=== PATIENT | male | born 1945 | race Caucasian/White ===

== ENCOUNTER → 2017-07-21 | Day surgery (SDC) | payer MEDICARE, OTHER ==
[~2017-07-21] MED LIST: BUPIVACAINE HCL 0.5 % INJ/PF 30 ML SDV ONE; METHYLPREDNISOLONE ACETATE INJ 40 MG/1 ML ML ONE
--- NOTE | 2017-07-21 15:04 | RADIOLOGY REPORT (SQ) ---
EXAM DESCRIPTION: INJECT/ASPIR WRIST/ELB/ANKLE; FLUORO/NEEDLE PLACEMENT COMPLETED DATE/TIME: 07/21/2017 2:43 pm REASON FOR STUDY: M19.071 PRIMARY OSTEOARTHRITIS, RIGHT ANKLE AND FOOT M19.071 PRIMARY OSTEOARTHRIT IS, RIGHT ANKLE AND FOOT COMPARISON: None. FLUOROSCOPY TIME: 1 minutes 2 seconds 2 images saved to PACS. LIMITATIONS: None. PROCEDURE: SITE OF INJECTION: 2nd and 3rd tarsometatarsal joints. LOCALIZING CONTRAST TYPE AND DOSE: 0.5 cc Isovue-300 MEDICATION TYPE AND DOSE: 20 mg Depo-Medrol. 0.5 cc 0.1% Sensorcaine. Using local anesthesia and sterile technique with fluoroscopic guidance, the needle was advanced into the joint. Iodinated contrast was injected to verify intraarticular placement. This was followed by therapeutic injection of the indicated medications. The needle was removed. There were no immediat e complications. Preprocedure pain level: 8/10. Postprocedure pain level: 0/10. IMPRESSION: THERAPEUTIC INJECTION OF THE RIGHT 2ND AND 3RD TARSOMETATARSAL JOINTS ABOVE. COMMENT: Patient medication list reviewed: Yes- Quality ID# [id number]:Eligible professional attests to doc umenting in the medical record they obtained, updated, or reviewed the patient's current medications. . Quality ID [id number]: Final reports for procedures using fluoroscopy that document radiation exposure edwardo cailin, or exposure time and number of fluorographic images (if radiation exposure indices are not avail able) TECHNICAL DOCUMENTATION: JOB ID: [id number] [employer]- All Rights Reserved
== END ==
LOC: RAD 13:26
PROVIDERS: ATTEND Orthopaedic Surgery
PROC: 3E0U33Z Introduction of Anti-inflammatory into Joints, Percutaneous Approach (ICD-10-PCS; principal; 2017-07-21)
DX: M19.071 Primary osteoarthritis, right ankle and foot (principal)
CPT/HCPCS: 20605; 77002; J1020; J3490

== ENCOUNTER 2018-06-26 10:34 | Emergency (ER) | payer MEDICARE, OTHER ==
[2018-06-26] MEDS ORDERED: ASPIRIN 81 MG TABLET, CHEWABLE PO ONE (11:59)
--- NOTE | 2018-06-26 12:04 | ER Document Report ---
ED General - General Chief Complaint: Leg Swelling Stated Complaint: LEG PAIN Time Seen by Provider: 06/26/18 11:36 Mode of Arrival: Ambulatory Information source: Patient, Relative, [facility] Records Notes: 72-year-old male with coronary artery disease, hypertension, degenerative joint disease presents with complaint of lower extremity swelling that started 1 week prior to arrival. Patient denies history of heart failure. States that he recently saw his coffee roaster who cleared him for a shoulder surgery last week. Patient denies chest pain. He states that this morning he had generalized abdominal pain and nausea that he described as aching and relieved with sitting up. Patient does admit to shortness of breath with minimal activity and lying flat. He denies fever, chills, nausea, vomiting, dysuria, hematuria. Patient's last bowel movement was this morning. Denies any black or bloody stools. TRAVEL OUTSIDE OF THE [place] IN LAST 30 DAYS: No - HPI Onset: Other Onset/Duration: Gradual, Persistent Quality of pain: Achy Severity: Mild Associated symptoms: Leg swelling, Shortness of breath. denies: Chest pain, Diarrhea, Headache, Nausea, Vomiting Exacerbated by: Supine Relieved by: Sitting Similar symptoms previously: No Recently seen / treated by doctor: Yes - Related Data Allergies/Adverse Reactions: No Known Allergies Allergy (Verified 10/05/15 21:24) Past Medical History - General Information source: Patient, [facility] Records - Social History Smoking Status: Current Some Day Smoker Cigarette use (# per day): Yes - 2 a month Chew tobacco use (# tins/day): No Smoking Education Provided: Yes - Smoking cessation counseling was provided for 4 minutes at the bedside Frequency of alcohol use: None Drug Abuse: None Lives with: Spouse/Significant other Family History: Reviewed & Not Pertinent Patient has suicidal ideation: No Patient has homicidal ideation: No - Past Medical History Cardiac Medical History: Reports: Hx Coronary Artery Disease, Hx Heart Attack, Hx Hypertension Pulmonary Medical History: Denies: Hx Asthma, Hx Bronchitis, Hx COPD, Hx Pneumonia Neurological Medical History: Denies: Hx Cerebrovascular Accident, Hx Seizures Endocrine Medical History: Reports: Hx Diabetes Mellitus Type 2 Renal/ Medical History: Denies: Hx Peritoneal Dialysis Musculoskeletal Medical History: Reports Hx Arthritis Past Surgical History: Reports: Hx Cardiac Catheterization, Hx Coronary Stent - x2, Hx Orthopedic Surgery - back, neck, left foot. Denies: Hx Pacemaker - Immunizations Hx Diphtheria, Pertussis, Tetanus Vaccination: Yes Hx Pneumococcal Vaccination: 04/06/15 Review of Systems - Review of Systems Constitutional: denies: Fever, Weakness, Weight gain EENT: denies: Blurred vision, Throat pain Cardiovascular: denies: Chest pain, Palpitations, Lightheaded Respiratory: Short of breath. denies: Cough Gastrointestinal: Abdominal pain, Constipation. denies: Diarrhea, Poor appetite, Poor fluid intake, Rectal bleeding Genitourinary: denies: Dysuria, Flank pain, Hematuria Male Genitourinary: No symptoms reported Musculoskeletal: Joint pain - Chronic joint pain, Leg swelling Skin: denies: Rash Hematologic/Lymphatic: No symptoms reported Neurological/Psychological: denies: Headaches -: Yes All other systems reviewed and negative Physical Exam - Vital signs Vitals: Temp Pulse Resp BP Pulse Ox 98.8 F 90 20 135/76 H 95 06/26/18 10:52 06/26/18 10:52 06/26/18 10:52 06/26/18 10:52 06/26/18 10:52 - Notes Notes: PHYSICAL EXAMINATION: GENERAL: Well-appearing, well-nourished and in no acute distress. HEAD: Atraumatic, normocephalic. EYES: Pupils equal round and reactive to light, extraocular movements intact, sclera anicteric, conjunctiva are normal. ENT: Nares patent, oropharynx clear without exudates. Moist mucous membranes. NECK: Normal range of motion, supple without lymphadenopathy LUNGS: Breath sounds clear to auscultation bilaterally and equal. No wheezes rales or rhonchi. HEART: Regular rate and rhythm without murmurs ABDOMEN: Soft, nontender, nondistended abdomen. No guarding, no rebound. No masses appreciated. Musculoskeletal: Normal range of motion, lateral 1+ pitting edema. No cyanosis. No calf tenderness, no erythema. NEUROLOGICAL: Cranial nerves grossly intact. Normal speech, normal gait. Normal sensory, motor exams PSYCH: Normal mood, normal affect. SKIN: Warm, Dry, normal turgor, no rashes or lesions noted. Course - Re-evaluation Re-evalutation: 06/26/18 17:20 Laboratory 06/26/18 06/26/18 06/26/18 12:20 12:20 12:20 WBC 6.7 RBC 4.47 Hgb 13.7 Hct 39.4 MCV 88 MCH 30.6 MCHC 34.7 RDW 13.1 Plt Count 221 Seg Neutrophils % 58.8 Lymphocytes % 28.0 Monocytes % 8.5 Eosinophils % 4.1 Basophils % 0.6 Absolute Neutrophils 3.9 Absolute Lymphocytes 1.9 Absolute Monocytes 0.6 Absolute Eosinophils 0.3 Absolute Basophils 0.0 PT 13.2 INR 0.95 VBG pH VBG pCO2 VBG HCO3 VBG Base Excess Sodium 139.2 Potassium 4.1 Chloride 101 Carbon Dioxide 29 Anion Gap 9 BUN 12 Creatinine 0.76 Est GFR ( Amer) > 60 Est GFR (Non-Af Amer) > 60 Glucose 235 H Calcium 9.4 Total Bilirubin 0.7 Direct Bilirubin 0.4 Neonat Total Bilirubin Not Reportable Neonat Direct Bilirubin Not Reportable Neonat Indirect Bili Not Reportable AST 20 ALT 23 Alkaline Phosphatase 80 Creatine Kinase 58 CK-MB (CK-2) Troponin I NT-Pro-B Natriuret Pep Total Protein 7.2 Albumin 4.3 Lipase 87.3 06/26/18 06/26/18 06/26/18 12:20 13:13 13:30 WBC RBC Hgb Hct MCV MCH MCHC RDW Plt Count Seg Neutrophils % Lymphocytes % Monocytes % Eosinophils % Basophils % Absolute Neutrophils Absolute Lymphocytes Absolute Monocytes Absolute Eosinophils Absolute Basophils PT INR VBG pH 7.42 VBG pCO2 42.6 VBG HCO3 27.0 VBG Base Excess 2.2 Sodium Potassium Chloride Carbon Dioxide Anion Gap BUN Creatinine Est GFR ( Amer) Est GFR (Non-Af Amer) Glucose Calcium Total Bilirubin Direct Bilirubin Neonat Total Bilirubin Neonat Direct Bilirubin Neonat Indirect Bili AST ALT Alkaline Phosphatase Creatine Kinase CK-MB (CK-2) 2.34 Troponin I < 0.012 < 0.012 NT-Pro-B Natriuret Pep 27 Total Protein Albumin Lipase Chest X-Ray 06/26/18 11:59 IMPRESSION: Cardiomegaly without acute abnormality of the lungs in AP projection. Abdomen/Pelvis CT 06/26/18 12:00 IMPRESSION: No CT findings to explain acute abdominal pain. Temp Pulse Resp BP Pulse Ox 98.8 F 90 14 134/69 H 93 06/26/18 10:52 06/26/18 10:52 06/26/18 16:31 06/26/18 16:31 06/26/18 16:31 72-year-old male presents with complaint of lower extremity edema that has been ongoing for proximally 1 week. Denies any associated shortness of breath, chest pain. Does state that he had some abdominal pain earlier today which was generally located and relieved when he sat up. Vital signs reviewed upon arrival and within normal limits. Patient is afebrile, normotensive and not hypoxic. Patient does not appear toxic or dehydrated. He is in no acute distress. Chest x-ray showed cardiomegaly without evidence of failure. CT of the abdomen and pelvis was obtained and showed no acute findings. CBC, CMP, cardiac enzymes, BNP are all within normal limits. Delta troponin also negative. Echocardiogram was obtained and reviewed by myself and without evidence of pericardial effusion, EF appeared normal based on appearance based on ant leaflets aproximation of the septal wall. No evidence of RV collapse. I did discuss findings of cardiomegaly with the patient who states that he history of persistent physical activity throughout his life. Patient was provided copies of his imaging and lab work performed today. He does report a history of enlarged prostate and difficulty with urination so I will leave Lasix administration up to his primary care physician and coffee roaster. LILLY ward recommended which the patient states he has. Patient and are in agreement with discharge home. Patient was evaluated and treated as appropriate for the patient's presenting symptoms and complaint, with consideration of any critical or life threatening conditions that may be associated with their obtained history and exam as noted above. All results were discussed with patient and copies of imaging and lab work were given to the patient. Patient provided the opportunity to ask questions, and express concerns. Patient was educated on treatments based on their presumed diagnosis as noted above. At this time we will discharge the patient with return precautions and follow-up recommendations. Verbal discharge instructions given a the bedside. Medication warnings reviewed. Patient is in agreement with this plan and has verbalized understanding of return precautions. After careful consideration I feel that that patient can be safely discharged from the emergency department, they were advised to followup with a primary care physician in 2-3 days. Dictation on this chart was performed using voice recognition software and may result in unintended grammatical, spelling, syntax or errors. 06/26/18 21:28 06/26/18 21:33 - Vital Signs Vital signs: Temp Pulse Resp BP Pulse Ox 98.8 F 90 14 134/69 H 93 06/26/18 10:52 06/26/18 10:52 06/26/18 16:31 06/26/18 16:31 06/26/18 16:31 - Laboratory Result Diagrams: 06/26/18 12:20 06/26/18 12:20 Laboratory results interpreted by me: 06/26/18 12:20 Glucose 235 H - Diagnostic Test Radiology reviewed: Image reviewed, Reports reviewed - EKG Interpretation by Me EKG shows normal: Sinus rhythm Rate: Normal Rhythm: NSR When compared to previous EKG there are: No significant change Critical Care Note - Critical Care Note Total time excluding time spent on procedures (mins): 30 - Minutes of critical care time spent in direct contact evaluating and reevaluating the patient, treating symptoms, reviewing labs and studies and speaking with family and consultants excluding any procedures Discharge - Discharge Clinical Impression: Peripheral edema, Cardiomegaly Hyperglycemia due to type 2 diabetes mellitus Qualifiers: Diabetes mellitus care home insulin use: without care home use Qualified Code(s): E11.65 - Type 2 diabetes mellitus with hyperglycemia Condition: Good Disposition: HOME, SELF-CARE Instructions: Edema, Peripheral ([facility]) Forms: Elevated Blood Pressure Referrals: STERLING COATS MD [NO LOCAL MD] - Follow up as needed
--- NOTE | 2018-06-26 12:31 | RADIOLOGY REPORT (SQ) ---
EXAM DESCRIPTION: CHEST SINGLE VIEW COMPLETED DATE/TIME: 06/26/2018 12:12 pm REASON FOR STUDY: Chest pain COMPARISON: 11/01/2014 EXAM PARAMETERS: NUMBER OF VIEWS: One view. TECHNIQUE: Single frontal radiographic view of the chest acquired. RADIATION DOSE: NA LIMITATIONS: None. FINDINGS: LUNGS AND PLEURA: No opacities, masses or pneumothorax. No pleural effusion. MEDIASTINUM AND HILAR STRUCTURES: No masses. Contour normal. HEART AND VASCULAR STRUCTURES: Cardiomegaly. BONES: No acute findings. HARDWARE: None in the chest. OTHER: No other significant finding. IMPRESSION: Cardiomegaly without acute abnormality of the lungs in AP projection. TECHNICAL DOCUMENTATION: JOB ID: [id number] [employer]- All Rights Reserved Reading location - IP/workstation name: [email or web address]
[2018-06-26 12:33] LABS: ABSOLUTE EOSINOPHILS # (AUTO) 0.3 10^3/uL (0.0-0.6); ABSOLUTE LYMPHOCYTES (AUTO) 1.9 10^3/uL (0.5-4.7); ABSOLUTE MONOCYTES (AUTO) 0.6 10^3/uL (0.1-1.4); ABSOLUTE NEUT (AUTO) 3.9 10^3/uL (1.7-8.2); BASOPHILS % (AUTO) 0.6 % (0-2); EOSINOPHILS % (AUTO) 4.1 % (0-6); HEMATOCRIT 39.4 % (37.9-51.0); HEMOGLOBIN 13.7 g/dL (13.5-17.0); MEAN CORPUSCULAR HEMOGLOBIN 30.6 pg (27.0-33.4); MEAN CORPUSCULAR HGB CONC 34.7 g/dL (32.0-36.0); MEAN CORPUSCULAR VOLUME 88 fl (80-97); MONOCYTES % (AUTO) 8.5 % (3-13); PLATELET COUNT 221 10^3/uL (150-450); RED BLOOD COUNT 4.47 10^6/uL (4.35-5.55); RED CELL DISTRIBUTION WIDTH 13.1 % (11.5-14.0); SEGMENTED NEUTROPHILS % (AUTO) 58.8 % (42-78); TOTAL CELLS COUNTED % (AUTO) 100 %; WHITE BLOOD COUNT 6.7 10^3/uL (4.0-10.5)
[2018-06-26 12:37] LABS: INTERNATIONAL RATION (INR) 0.95; PROTHROMBIN TIME 13.2 SEC (11.4-15.4)
[2018-06-26 12:48] LABS: ALANINE AMINOTRANSFERASE 23 U/L (21-72); ALBUMIN 4.3 g/dL (3.5-5.0); ALKALINE PHOSPHATASE 80 U/L (38-126); ANION GAP 9 (5-19); ASPARTATE AMINO TRANSFERASE 20 U/L (17-59); BILIRUBIN,DIRECT 0.4 mg/dL (0.0-0.4); BILIRUBIN,TOTAL 0.7 mg/dL (0.2-1.3); BLOOD UREA NITROGEN 12 mg/dL (7-20); CALCIUM 9.4 mg/dL (8.4-10.2); CARBON DIOXIDE 29 mmol/L (22-30); CHLORIDE 101 mmol/L (98-107); CREATINE KINASE 58 U/L (55-170); GLUCOSE 235 mg/dL (75-110); LIPASE 87.3 U/L (23-300); POTASSIUM 4.1 mmol/L (3.6-5.0); SODIUM 139.2 mmol/L (137-145); TOTAL PROTEIN 7.2 g/dL (6.3-8.2)
[2018-06-26 13:00] LABS: CREATINE KINASE MB 2.34 ng/mL (<4.55); NT PRO BNP 27 pg/mL (5-900)
[2018-06-26 13:01] LABS: TROPONIN I < 0.012 ng/mL
[2018-06-26] MEDS ORDERED: FUROSEMIDE INJ/PF 20 MG/2 ML SDV IV ONE (13:13)
--- NOTE | 2018-06-26 13:13 | EKG REPORT ---
SEVERITY:- NORMAL ECG - SINUS RHYTHM : Confirmed by: John Reynoso MD 26-Jun-2018 13:13:20
[2018-06-26 13:41] LABS: VENOUS BLOOD BASE EXCESS 2.2 mmol/L; VENOUS BLOOD PCO2 42.6 mmHg (35-63); VENOUS BLOOD PH 7.42 (7.30-7.42)
--- NOTE | 2018-06-26 14:31 | RADIOLOGY REPORT (SQ) ---
EXAM DESCRIPTION: CT ABD/PELVIS WITH IV ONLY COMPLETED DATE/TIME: 06/26/2018 2:18 pm REASON FOR STUDY: Abdominal pain COMPARISON: None. TECHNIQUE: CT scan of the abdomen and pelvis performed using helical scanning technique with dynamic intravenous contrast injection. No oral contrast. Images reviewed with lung, soft tissue, and bone windows. Reconstructed coronal and sagittal MPR images reviewed. Delayed images for evaluation of the urinary system also acquired. All images stored on PACS. All CT scanners at this facility use dose modulation, iterative reconstruction, and/or weight based d osing when appropriate to reduce radiation dose to as low as reasonably achievable (ALARA). [facility]: Dose Right [facility]: CareDose [facility]: Dose Right [facility]: Teradose 4D [facility]: [employer] CONTRAST TYPE AND DOSE: contrast/concentration: Isovue 350.00 mg/ml; Total Contrast Delivered: 100.0 ml; Total Saline Delivered: 72.0 ml RENAL FUNCTION: GFR > 60. RADIATION DOSE: CT Rad equipment meets quality standard of care and radiation dose reduction techniq ues were employed. CTDIvol: 21.1 - 28.0 mGy. DLP: 2610 mGy-cm.. LIMITATIONS: None. FINDINGS: LOWER CHEST: No significant findings. No nodules or infiltrates. Coronary artery calcific ations. LIVER: Normal size. No masses. No dilated ducts. SPLEEN: Normal size. No focal lesions. PANCREAS: No masses. No significant calcifications. No adjacent inflammation or peripancreatic fluid collections. Pancreatic duct not dilated. GALLBLADDER: No identified stones by CT criteria. No inflammatory changes to suggest cholecystitis. ADRENAL GLANDS: No significant masses or asymmetry. RIGHT KIDNEY AND URETER: No solid masses. Large exophytic cyst. No significant calcifications. No hydronephrosis or hydroureter. LEFT KIDNEY AND URETER: No solid masses. No significant calcifications. No hydronephrosis or hydr oureter. AORTA AND VESSELS: No aneurysm. No dissection. Renal arteries, SMA, celiac without stenosis. Calcifi c atherosclerosis. RETROPERITONEUM: No retroperitoneal adenopathy, hemorrhage or masses. BOWEL AND PERITONEAL CAVITY: No masses or inflammatory changes. No free fluid or peritoneal masses. APPENDIX: Normal. PELVIS: No mass. No free fluid. Normal bladder. ABDOMINAL WALL: No masses. No hernias. BONES: No significant or acute findings. Status post posterior fusion of L4 through S1. OTHER: No other significant finding. IMPRESSION: No CT findings to explain acute abdominal pain. TECHNICAL DOCUMENTATION: JOB ID: [id number] Quality ID # [id number]: Final reports with documentation of one or more dose reduction techniques (e.g., Au tomated exposure control, adjustment of the mA and/or kV according to patient size, use of iterative reconstruction technique) 2010 [employer]- All Rights Reserved Reading location - IP/workstation name: [email or web address]
[2018-06-26 17:04] VITALS: BP 134/69
--- NOTE | 2018-06-26 21:26 | XCELERA REPORT ---
[address] [address] Transthoracic Echocardiogram Report Name: KENNETH LICEACATRACHITO JR Age: 72 yrs Gender: Male : 1945 Patient Status: Emergency Patient Location: ER Study Date: 06/26/2018 03:28 PM Height: 69 in Weight: 251 lb BSA: 2.3 m2 Procedure: A two-dimensional transthoracic echocardiogram with color flow and Doppler was performed. Study Quality: Fair. Reason For Study: concern for heart failure History: CHF. Ordering Physician: MAEGAN EDWARDS Performed By: Haley Garg Interpretation Summary The left ventricle is normal in size. There is normal left ventricular wall thickness. LV EF is > than 60% Left ventricular systolic function is normal. Doppler measurements suggest normal left ventricular diastolic function : By tissue dopplers. Cannot exclude a small area of hypokinesis of the apical inferior wall.Rest of the inferior wall , and rest of the LV jarvis contract normally. There is no thrombus. The right ventricle is normal in size and function. The right atrium is normal. The left atrial size is normal. There is no evidence of mitral valve prolapse. There is no vegetation seen on the mitral valve. There is no mitral valve stenosis. There is no mitral regurgitation noted. There is no aortic valvular vegetation. There is no aortic valve stenosis There is no LVOT obstruction. There is no tricuspid stenosis. There is a trace amount of tricuspid regurgitation Unable to calculate RVSP due lack of TR jet. There is no pulmonic valvular stenosis. There is no pulmonic valvular regurgitation. The aortic root is normal size. There is no pericardial effusion. MMode/2D Measurements & Calculations RVDd: 2.9 cm LVIDd: 4.5 cm FS: 39.6 % Ao root diam: 2.6 cm IVSd: 1.1 cm LVIDs: 2.7 cm EDV(Teich): 92.8 ml Ao root area: 5.4 cm2 LVPWd: 1.0 cm ESV(Teich): 27.5 ml LA dimension: 3.7 cm EF(Teich): 70.3 % Doppler Measurements & Calculations MV E max indio: MV P1/2t max indio: Ao V2 max: LV V1 max P.4 cm/sec 77.1 cm/sec 133.0 cm/sec 3.8 mmHg MV A max indio: MV P1/2t: 78.1 msec Ao max PG: LV V1 max: 77.1 cm/sec MVA(P1/2t): 2.8 cm2 7.1 mmHg 97.2 cm/sec MV E/A: 0.99 MV dec slope: 289.1 cm/sec2 MV dec time: 0.24 sec PA V2 max: MV P1/2t-pr_phl: 80.9 cm/sec 78.1 msec PA max P.6 mmHg Left Ventricle The left ventricle is normal in size. There is normal left ventricular wall thickness. LV EF is > than 60%. Left ventricular systolic function is normal. Doppler measurements suggest normal left ventricular diastolic function. : By tissue dopplers. Cannot exclude a small area of hypokinesis of the apical inferior wall.Rest of the inferior wall , and rest of the LV jarvis contract normally. There is no thrombus. Right Ventricle The right ventricle is normal in size and function. Atria The right atrium is normal. The left atrial size is normal. Mitral Valve There is no evidence of mitral valve prolapse. There is no vegetation seen on the mitral valve. There is no mitral valve stenosis. There is no mitral regurgitation noted. Aortic Valve There is no aortic valvular vegetation. There is no aortic valve stenosis. There is no LVOT obstruction. No aortic regurgitation is present. Tricuspid Valve There is no tricuspid stenosis. There is a trace amount of tricuspid regurgitation. Unable to calculate RVSP due lack of TR jet. Pulmonic Valve There is no pulmonic valvular stenosis. There is no pulmonic valvular regurgitation. Great Vessels The aortic root is normal size. Effusions There is no pericardial effusion. : MAEGAN EDWARDS > Laura Mcneill
== END 2018-06-26 18:25 | disposition home or self-care (01) ==
LOC: ER 10:34
DX: I51.7 Cardiomegaly (principal); E11.65 Type 2 diabetes mellitus with hyperglycemia; R60.0 Localized edema; M79.89 Other specified soft tissue disorders; R10.84 Generalized abdominal pain; R11.0 Nausea; R06.02 Shortness of breath; I25.10 Atherosclerotic heart disease of native coronary artery without angina pectoris; I10 Essential (primary) hypertension; K59.00 Constipation, unspecified; F17.210 Nicotine dependence, cigarettes, uncomplicated
CPT/HCPCS: 93005; 99406; 99284; 96374; 36415; 82553; 82550; 83690; 85025; 85610; 80053; 84484; 82803; 83880; 93306; 71045; 74177; 93010; A9270; J1940